=== PATIENT | male | born 1960 | race Hispanic/Latino ===

== ENCOUNTER 2018-07-17 09:31 | Emergency (ER) | payer OTHER ==
[2018-07-17 09:40] VITALS: TEMP 98.2
--- NOTE | 2018-07-17 09:46 | ED PDOC ---
Arrival/HPI - General Historian: Patient - History of Present Illness Narrative History of Present Illness (Text): 07/17/18 09:46 58 y/o male, no pmh, nkda, last tetanus doesn't remember, c/o lt. calf laceration x 1 hour. Pt. stated that he was walking on his job site, froylan wire sprint up and sustained laceration to the left calf, no numbness or tingling, no difficulty flexion/extension/rotation of the lt. lower extremity, no numbness or tingling, no night sweat, no rash, no dizziness, no change in vision, no other medical or psychological complaints. Past Medical History - Provider Review Nursing Documentation Reviewed: Yes Family/Social History - Physician Review Nursing Documentation Reviewed: Yes Family/Social History: Unknown Family HX Allergies/Home Meds Allergies/Adverse Reactions: Allergies No Known Allergies Allergy (Verified 07/17/18 09:47) Review of Systems - Review of Systems Constitutional: absent: Fatigue, Fevers Eyes: absent: Vision Changes ENT: absent: Hearing Changes Respiratory: absent: SOB, Cough Cardiovascular: absent: Chest Pain Gastrointestinal: absent: Abdominal Pain, Diarrhea, Nausea, Vomiting Skin: Laceration. absent: Rash, Pruritis, Skin Lesions, Abscess, Ulcer, Cellulitis Neurological: absent: Headache, Dizziness Psychiatric: absent: Anxiety, Depression, Suicidal Ideation Physical Exam Vital Signs Reviewed: Yes Vital Signs Temp Pulse Resp BP Pulse Ox 07/17/18 09:39 98.2 F 79 18 133/98 H 97 Temperature: Afebrile Blood Pressure: Hypertensive Pulse: Regular Respiratory Rate: Normal Appearance: Positive for: Well-Appearing, Non-Toxic, Comfortable Pain Distress: Mild Mental Status: Positive for: Alert and Oriented X 3 - Systems Exam Head: Present: Atraumatic, Normocephalic Pupils: Present: PERRL Extroacular Muscles: Present: EOMI Conjunctiva: Present: Normal Mouth: Present: Moist Mucous Membranes Neck: Present: Normal Range of Motion Respiratory/Chest: Present: Clear to Auscultation, Good Air Exchange. No: Respiratory Distress, Accessory Muscle Use Cardiovascular: Present: Regular Rate and Rhythm, Normal S1, S2. No: Murmurs Abdomen: No: Tenderness, Distention, Peritoneal Signs Back: Present: Normal Inspection. No: CVA Tenderness, Midline Tenderness, Paraspinal Tenderness, Pain with Leg Raise, Decubitus Ulcer Upper Extremity: Present: Normal Inspection. No: Cyanosis, Edema Lower Extremity: Present: Normal Inspection, Other (Lt. calf: visible laceration superficial to intermediate depth approx. 8cm noted, no muscle or tendon involvement, FROM without limitation including flexion/extension/rotation of left lower extremity, negative blayne and vasques signs, sensation intact, motor 5/5, +DPPT pulses, capillary refill< 2 seconds, neurovascular intact). No: Edema Neurological: Present: GCS=15, CN II-XII Intact, Speech Normal Skin: Present: Warm, Dry, Normal Color. No: Rashes Psychiatric: Present: Alert, Oriented x 3, Normal Insight, Normal Concentration Medical Decision Making ED Course and Treatment: 07/17/18 09:50 -keflex/percocet/tdap -lt. tibia/fibula xray -will suture 07/17/18 09:53 PROCEDURE: LACERATION REPAIR Performed by the emergency provider Location: lt. calf Length: 8 cm Description: {"clean wound edges","no foreign bodies"} Distal CMS: Normal. No deficits. Neurovascularly intact. Anesthesia: Lidocaine 1% 1cc Preparation: The wound was cleaned with NS 1000cc and clean with betadine. The area was prepped and draped in the usual sterile fashion. Exploration: The wound was explored and no foreign bodies were found, irregular torn edges. Procedure: The wound was closed with 4-0 nylon. There was {good / appropriate / adequate / loose} approximation. In total, 15 were used. Post-Procedure: Good closure and hemostasis. The patient tolerated the procedure well and there were no complications. CSM remains intact. Post procedure dressing applied. -Xray ER wet read: no fracture/dislocation/foreign bodies. 07/17/18 12:05 -Discharge home with keflex, motrin, bacitracin oinment, keep it dry and clean for 2 days then clean it twice daily, sutures removed by day 10, avoid strenuous exercise or activity, follow up with your own pmd and orthopedic within 2 days, return to the ER for any new or worsening signs or symptoms. - RAD Interpretation Radiology Orders: Date of service: 07/17/2018 PROCEDURE: Radiographs of the left tibia and fibula. HISTORY: lt. calf laceration COMPARISON: None available. TECHNIQUE: Frontal and lateral views obtained. Three views obtained. FINDINGS: BONES: No fracture or destructive lesion. JOINT SPACES: Unremarkable. OTHER FINDINGS: None. IMPRESSION: Unremarkable radiographs of the left tibia and fibula. Machine Candle Molder: Radiologist - PA / OFFICE SWEEPER / Resident Statement MD/DO has reviewed & agrees with the documentation as recorded. Disposition/Present on Arrival - Present on Arrival Any Indicators Present on Arrival: No History of DVT/PE: No History of Uncontrolled Diabetes: No Urinary Catheter: No History of Decub. Ulcer: No - Disposition Have Diagnosis and Disposition been Completed?: Yes Diagnosis: Laceration of calf Disposition: HOME/ ROUTINE Disposition Time: 12:06 Patient Plan: Discharge Condition: GOOD Additional Instructions: -Discharge home with keflex, motrin, bacitracin oinment, keep it dry and clean for 2 days then clean it twice daily, sutures removed by day 10, avoid strenuous exercise or activity, follow up with your own pmd and orthopedic within 2 days, return to the ER for any new or worsening signs or symptoms. Prescriptions: Bacitracin Ointment [Bacitracin] 1 appful TOP BID #15 g Cephalexin [Keflex] 500 mg PO QID #40 capsule Ibuprofen [Motrin] 600 mg PO QID PRN #30 tab PRN Reason: Other Referrals: Gentry Cobb MD [Staff Provider] - Follow up with primary [facility] [place] - Follow up with primary Forms: WORK NOTE
[2018-07-17] MEDS ORDERED: Lidocaine 1% Inj (20ml) IJ STA (09:50)
[2018-07-17] MEDS ORDERED: TDAP Vaccine 0.5 mL Syr IM ONE (09:50)
[2018-07-17] MEDS: Oxycodone/Acetaminophen 5/325 mg Tab PO STA ×2 (10:23→10:27)
[2018-07-17 12:15] VITALS: BP 130/89; PULSE 79; RESP 19; O2SAT 100
--- NOTE | 2018-07-17 13:26 | RAD ---
Date of service: 07/17/2018 PROCEDURE: Radiographs of the left tibia and fibula. HISTORY: lt. calf laceration COMPARISON: None available. TECHNIQUE: Frontal and lateral views obtained. Three views obtained. FINDINGS: BONES: No fracture or destructive lesion. JOINT SPACES: Unremarkable. OTHER FINDINGS: None. IMPRESSION: Unremarkable radiographs of the left tibia and fibula.
== END 2018-07-17 12:14 | disposition home or self-care (01) ==
LOC: ED 09:31
DX: S81.812A Laceration without foreign body, left lower leg, initial encounter (principal); W45.8XXA Other foreign body or object entering through skin, initial encounter; Y93.01 Activity, walking, marching and hiking; Y99.0 Civilian activity done for income or pay; Z23 Encounter for immunization